=== PATIENT | male | born 1960 | race African-American/Black ===

== ENCOUNTER 2017-08-06 21:28 | Emergency (ER) | payer OTHER ==
[~2017-08-06 21:28] MED LIST: MICO2CRE4 TOP
[2017-08-06 21:43] VITALS: BP 88/56; PULSE 104; RESP 16; TEMP 97.6; O2SAT 97
--- NOTE | 2017-08-06 21:50 | PD ---
HPI Chief Complaint: Alcohol/Drug Intoxication Time Seen by Provider: 21:32 Travel History International Travel<30 days: No Contact w/Intl Traveler<30days: No Traveled to known affect area: No History of Present Illness HPI The 57-year-old man who presents to the emergency department brought in by police for being intoxicated and unable to walk. He has no complaints. Denies drinking alcohol daily. Denies history of alcohol withdrawal symptoms in the past. Denies any drug use today. Denies any recent injuries. History Past Medical History Narrative Medical Hypertension Social History Alcohol Use: Yes (DAILY) Tobacco Use: Yes Allergies-Medications (Allergen,Severity, Reaction): Coded Allergies: No Known Allergies (Verified , 09/12/16) Reported Meds & Prescriptions Reported Meds & Active Scripts Active Miconazole Nitrate 2 % Cre 1 Applic TOP BID 14 Days APPLY TO: Review of Systems Except as stated in HPI: all other systems reviewed are Neg Physical Exam Narrative GENERAL: Well-appearing 57-year-old man, no acute distress. Disheveled. SKIN: Focused skin assessment warm/dry. HEAD: Atraumatic. Normocephalic. CARDIOVASCULAR: Regular rate and rhythm. No murmur appreciated. RESPIRATORY: No accessory muscle use. Clear to auscultation. Breath sounds equal bilaterally. GASTROINTESTINAL: Abdomen soft, non-tender, nondistended. Hepatic and splenic margins not palpable. MUSCULOSKELETAL: No obvious deformities. No edema. NEUROLOGICAL: Awake and alert. No obvious cranial nerve deficits. Motor grossly within normal limits. Slurred speech. Appears intoxicated. Data Data Last Documented VS Vital Signs Date Time Temp Pulse Resp B/P (MAP) Pulse Ox O2 Delivery O2 Flow Rate FiO2 08/06/17 21:43 97.6 104 16 88/56 (67) 97 Room Air MDM Medical Decision Making Medical Screen Exam Complete: Yes Emergency Medical Condition: Yes Differential Diagnosis Intoxication, occult injury, other Narrative Course Medical decision making 57-year-old man, intoxicated, no complaints. A lot of sober up. Discharge to [facility]-way in the morning. Diagnosis Primary Impression: Alcohol abuse Additional Impression: Contusion Additional Instructions: Avoid alcohol. Med/Other Pt SpecificInfo: No Change to Meds Disposition: 01 DISCHARGE HOME Condition: Stable Tio Mchugh MD Aug 06, 2017 21:50
[2017-08-07 01:25] VITALS: BP 96/67; PULSE 98; RESP 16; O2SAT 100
[2017-08-07 05:47] VITALS: BP 111/73; PULSE 109; RESP 16; O2SAT 100
== END 2017-08-07 06:21 | disposition home or self-care (01) ==
LOC: NEPD 21:28
DX: F10.129 Alcohol abuse with intoxication, unspecified (principal); T14.8 Other injury of unspecified body region; X58.XXXA Exposure to other specified factors, initial encounter
CPT/HCPCS: 99281